=== PATIENT | female | born 1970 | race Caucasian/White ===

== ENCOUNTER 2018-08-03 22:45 | Inpatient (IN) | payer OTHER ==
[~2018-08-03] VITALS: Ht 160 cm; Wt 97.1 kg
[~2018-08-03 22:45] MED LIST: BACTRIM DS TAB1 EACH PO; NOHOMEMEDICATIONS; NORCO 5-325 TA1 EACH PO; ZOFRAN ODT4 MG PO
[2018-08-03 23:00] VITALS: BP 140/103
[2018-08-03 23:46] LABS: ABSOLUTE EOSINOPHILS 0.1 thou/uL (0.0-0.7); ABSOLUTE LYMPHOCYTES 1.2 thou/uL (0.8-5.3); ABSOLUTE MONOCYTES 0.8 thou/uL (0.0-1.2); ABSOLUTE NEUTROPHILS 2.9 thou/uL (1.6-8.1); BASOPHILS 0.9 %; EOSINOPHILS 1.8 %; HEMATOCRIT 38.2 % (37.0-47.0); HEMOGLOBIN 12.5 gm/dL (12.0-15.0); LYMPHOCYTES 24.4 %; MCH 25.9 pg (26.0-34.0); MCHC 32.8 g/dL (28.0-37.0); MCV 79.1 fL (80.0-100.0); MONOCYTES 15.5 %; NUCLEATED RBCS 0 /100WBC; PLATELET COUNT* 250 thou/uL (150-400); POLYS 57.4 %; RBC 4.82 mil/uL (4.20-5.00); RDW-CV 17.7 % (10.5-14.5)
[2018-08-03 23:50] LABS: ANION GAP 5 mmol/L (7-16); BUN 12 mg/dL (7-18); CALCIUM 8.3 mg/dL (8.5-10.1); CHLORIDE 107 mmol/L (98-107); CO2 30 mmol/L (21-32); CREATININE 0.7 mg/dL (0.6-1.3); GLUCOSE 98 mg/dL (70-99); POTASSIUM 4.4 mmol/L (3.5-5.1); SODIUM 142 mmol/L (136-145)
[2018-08-03 23:58] LABS: APTT 28.6 Seconds (25.0-31.3); PROTIME 9.9 Seconds (9.20-11.50)
[2018-08-03 23:59] LABS: ALBUMIN 2.9 g/dL (3.4-5.0); ALKALINE PHOSPHATASE 90 U/L (46-116); LIPASE 207 U/L (73-393); SGOT 23 U/L (15-37); SGPT 28 U/L (30-65); TOTAL BILIRUBIN 0.4 mg/dL (<0.1-1.0); TROPONIN-I LEVEL <0.06 ng/mL (<0.06)
[2018-08-04 00:19] LABS: AMP/METHAMP POSITIVE (Negative); BARBITURATES Negative (Negative); BENZODIAZEPINES Negative (Negative); COCAINE Negative (Negative); METHADONE Negative (Negative); OPIATES Negative (Negative); PCP Negative (Negative); THC Negative (Negative)
[2018-08-04 08:11] VITALS: BP 117/57
--- NOTE | 2018-08-04 09:06 | NUR ---
PT GIVEN BREAKFAST TRAY.
[2018-08-04 11:54] VITALS: BP 105/58
--- NOTE | 2018-08-04 13:30 | NUR ---
PT C/O SEVERE CP AND STATES SHE IS SWEATING DR. SHAHID PLACED WAITING ON RESPONSE
--- NOTE | 2018-08-04 13:31 | NUR ---
EKG DONE 1333 SR
[2018-08-04 15:52] VITALS: BP 100/57
[2018-08-04 16:22] VITALS: BP 129/78
--- NOTE | 2018-08-04 16:35 | NUR ---
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
--- NOTE | 2018-08-04 17:13 | EKG ---
[place] [address] ELECTROCARDIOGRAM REPORT Name: SERA PHILLIPS Room: [address] ADM IN M.R.#: [id number] Admission: 08/04/18 Attend Phys: Noelle Chavarria Discharge: Date of : 72 Report #: [id number] THIS REPORT FOR: //name// [facility] ED Test Date: 2018-08-03 Test Time: 22:56:38 Pat Name: SERA PHILLIPS Department: Room: 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 : 1970 Requested By: Paulette Lennon Order Number: [id number] MD: Les Isabel Measurements Intervals [place] Rate: 85 P: 56 UT: 150 QRS: 95 QRSD: 115 T: 82 QT: 377 QTc: 449 Interpretive Statements Sinus rhythm Low voltage, extremity and precordial leads Baseline wander in lead(s) I,III,aVR,aVL,V1,V2,V6 Compared to ECG 10/19/2015 23:27:29 Intraventricular conduction delay now present Low QRS voltage now present Electronically Signed On 08-04-2018 17:13:44 CDT by Les Isabel [email or web address] <ELECTRONICALLY SIGNED> By: Les Isabel MD, FACC 08/04/18 1713 2256 2256 Les Isabel MD, FACC /EPI
--- NOTE | 2018-08-04 17:22 | EKG ---
[place] [address] ELECTROCARDIOGRAM REPORT Name: HAWA PHILLIPSELLE Chalo Room: [address] ADM IN M.R.#: [id number] Admission: 08/04/18 Attend Phys: Noelle Chavarria Discharge: Date of : 72 Report #: [id number] THIS REPORT FOR: //name// [facility] ED Test Date: 2018-08-04 Test Time: 13:33:34 Pat Name: SERA PHILLIPS Department: Room: [facility] Gender: F Skin Carver: MS : 1970 Requested By: Ravinder Ivan Order Number: [id number] Summer MD: Les Isabel Measurements Intervals [place] Rate: 65 P: 53 UT: 169 QRS: 79 QRSD: 88 T: 74 QT: 402 QTc: 418 Interpretive Statements Sinus rhythm Baseline wander in lead(s) I,II,aVR,aVL,V1,V2,V3,V4,V5,V6 Compared to ECG 10/19/2015 23:27:29 No significant changes noted Electronically Signed On 08-04-2018 17:22:30 CDT by Les Isabel [email or web address] <ELECTRONICALLY SIGNED> By: Les Isabel MD, FACC 08/04/18 1722 1333 1333 Les Isabel MD, [facility] /EPI
[2018-08-04 20:00] VITALS: BP 140/65
[2018-08-05 00:30] VITALS: BP 114/68
[2018-08-05 04:00] VITALS: BP 102/66
--- NOTE | 2018-08-05 06:10 | NUR ---
ASSUMED PATIENT CARE AT 1900. PATIENT ALERT AND ORIENTED TIMES FOUR. MINOR COMPLAINTS OF A HEADACHE. IV MEDS GIVEN PATIENT DOES NOT HAVE ANY ORAL MEDICATION. VERBALIZES UNDERSTANDING OF CARE PLAN AND WHAT TO EXPECT WITH TREATMENT. DENIED THAT HEADACHE WAS WITHDRAWL RELATED. RN INTENSIVE CARE UNIT AND HOURLY ROUNDING COMPLETED DOCUMENTED.
[2018-08-05 08:00] VITALS: BP 112/69
--- NOTE | 2018-08-05 11:25 | NUR ---
cm completed initial assessment to discuss d/c planning. pt is a&ox4. active and independent. lives at home w/her fahter. has adult children that provides support. pt denies hx w/hh or snf. [address] [facility] will assist w/medication, as pt has no insurance and is medicaid pending. pt goal is to d/c to home. cm to remain avialable to assist as needed.
[2018-08-05 11:30] VITALS: BP 114/84
[2018-08-05 12:47] VITALS: BP 112/69
[2018-08-05] MEDS ORDERED: COUMADIN 5 MG TA5 M1 PO (13:37)
[2018-08-05] MEDS ORDERED: ENOXAPARIN80 MG/0.1 SUBQ (13:39)
--- NOTE | 2018-08-05 14:39 | 2DMMODE ---
[place] [address] 2 D/M-MODE ECHOCARDIOGRAM Name: SERA PHILLIPS Chalo Room: [address] ADM IN [facility]#: [id number] Admission: 08/04/18 Attend Phys: Ravinder Ivan Discharge: Date of : 72 Date of Service: 08/05/18 1439 Report #: [id number] THIS REPORT FOR: //name// APPROVED REPORT Study performed: 08/05/2018 10:27:04 EXAM: Comprehensive 2D, Doppler, and color-flow Echocardiogram Patient Location: In-Patient Room #: 221 Status: routine BSA: 1.99 HR: 74 bpm BP: 112/69 mmHg Rhythm: NSR Other Information Study Quality: Good Indications Dyspnea 2D Dimensions IVSd: 10.16 (7-11mm) LVOT Diam: 21.31 (18-24mm) LVDd: 42.94 mm PWd: 9.13 (7-11mm) Ascending Ao: 31.84 (22-36mm) LVDs: 28.54 (25-40mm) Aortic Root: 28.21 mm Volumes Left Atrial Volume (Systole) LA ESV Index: 16.60 mL/m2 Aortic Valve AoV Peak Valentin.: 1.17 m/s AO Peak Gr.: 5.45 mmHg LVOT Max P.51 mmHg AO Mean Gr.: 3.03 mmHg LVOT Mean P.65 mmHg LVOT Max V: 1.17 m/s AO V2 VTI: 24.12 cm LVOT Mean V: 0.75 m/s NELL (VTI): 3.48 cm2 LVOT V1 VTI: 23.52 cm Mitral Valve E/A Ratio: 1.55 MV Decel. Time: 211.34 ms MV E Max Valentin.: 0.79 m/[place] [address] 2 D/M-MODE ECHOCARDIOGRAM Name: SERA PHILLIPS Room: [address] IN ..#: [id number] Admission: 08/04/18 Attend Phys: Ravinder Ivan Discharge: Date of : 72 Date of Service: 08/05/18 1439 Report #: [id number] MV PHT: 61.29 ms MVA (PHT): 3.59 cm2 TDI E/Lateral E': 4.65 E/Medial E': 6.58 Medial E' Valentin.: 0.12 m/s Lateral E' Valentin.: 0.17 m/s Pulmonary Valve PV Peak Valentin.: 0.89 m/s PV Peak Gr.: 3.14 mmHg Tricuspid Valve RAP Estimate: 5.00 mmHg TR Peak Gr.: 23.43 mmHg RVSP: 28.00 mmHg PA Pressure: 28.00 mmHg Left Ventricle The left ventricle is normal size. There is normal LV segmental wall motion. There is normal left ventricular wall thickness. Left ventricular systolic function is normal. LVEF is 55-60%. The left ventricular diastolic function is normal. Right Ventricle The right ventricle is normal size. The right ventricular systolic function is normal. Atria The left atrium size is normal. The right atrium size is normal. Aortic Valve The aortic valve is normal in structure. No aortic regurgitation is present. There is no aortic valvular stenosis. Mitral Valve The mitral valve is normal in structure. Trace mitral regurgitation. No evidence of mitral valve stenosis. Tricuspid Valve The tricuspid valve is normal in structure. Trace tricuspid regurgitation. No pulmonary hypertension. Pulmonic Valve The pulmonary valve is normal in structure. There is no pulmonic [place] [address] 2 D/M-MODE ECHOCARDIOGRAM Name: SERA PHILLIPS Room: [address]#: [id number] Admission: 08/04/18 Attend Phys: Ravinder Ivan Discharge: Date of : 72 Date of Service: 08/05/18 1439 Report #: [id number] Great Vessels The aortic root is normal in size. IVC is normal in size and collapses >50% with inspiration. Pericardium There is no pericardial effusion. <Conclusion> The left ventricle is normal size. There is normal left ventricular wall thickness. Left ventricular systolic function is normal. LVEF is 55-60%. The left ventricular diastolic function is normal. Trace mitral regurgitation. Trace tricuspid regurgitation. No pulmonary hypertension. IVC is normal in size and collapses >50% with inspiration. <ELECTRONICALLY SIGNED> By: Les Isabel MD, FACC 08/05/18 1439 1439 1439 Les Isabel MD, FACC /INF
--- NOTE | 2018-08-05 15:24 | NUR ---
VSS, ASSUMED CARE IN THE AM, ASSESSMENT PERFORMED AND CHARTED FALL PRECAUTIONS IN PLACE AND CALL LIGHT IN REACH, PT DENIES ANY COMPLANTS OF PAIN AND IS TRACING SR ON THE MONITOR, HER GOAL IS TO DISCHARGE TO HOME, AT THIS TIME SHE HAS BEEN BEEN GIVEN DISCHARGE ORDERS, AND HER IV AND TELE MONITOR TAKEN OFF, SHE HAD SCRIPTS CALLED IN AND DISCHARGE PAPERS PROVITED, PT DENIES ANY QUESTIONS AT TIME OF D/C SHE HAD GATHERED ALL BELONGINGS AND PLACED WITH AT TIME OF D/C HOURLY ROUNDS COMPLETED.
[2018-08-05 15:27] LABS: PROTIME 9.8 Seconds (9.20-11.50)
== END 2018-08-05 18:56 | disposition home or self-care (01) | DRG 176 ==
LOC: M.ERS 22:45 → M.2W 08-04 02:50 → M.TBA-ER 08-04 02:50 → M.2W 08-04 15:59
PROVIDERS: Internal Medicine; Personal Emergency Response Attendant; ADMIT Internal Medicine
DX: I26.99 Other pulmonary embolism without acute cor pulmonale (principal); J45.909 Unspecified asthma, uncomplicated; F17.210 Nicotine dependence, cigarettes, uncomplicated; F12.90 Cannabis use, unspecified, uncomplicated; K29.70 Gastritis, unspecified, without bleeding; Z82.49 Family history of ischemic heart disease and other diseases of the circulatory system; Z79.899 Other long term (current) drug therapy

== ENCOUNTER 2018-08-10 03:46 | Emergency (ER) | payer OTHER ==
[~2018-08-10] VITALS: Ht 157.5 cm; Wt 81.6 kg
[~2018-08-10 03:46] MED LIST changes: +COUMADIN 5 MG TA5 M1 PO; +ENOXAPARIN80 MG/0.1 SUBQ
[2018-08-10 04:08] LABS: ABSOLUTE BASOPHILS 0.1 thou/uL (0.0-0.2); ABSOLUTE EOSINOPHILS 0.5 thou/uL (0.0-0.7); ABSOLUTE LYMPHOCYTES 3.3 thou/uL (0.8-5.3); ABSOLUTE MONOCYTES 0.8 thou/uL (0.0-1.2); ABSOLUTE NEUTROPHILS 6.4 thou/uL (1.6-8.1); BASOPHILS 0.8 %; EOSINOPHILS 4.5 %; HEMATOCRIT 38.2 % (37.0-47.0); HEMOGLOBIN 12.3 gm/dL (12.0-15.0); LYMPHOCYTES 29.9 %; MCH 25.2 pg (26.0-34.0); MCHC 32.1 g/dL (28.0-37.0); MCV 78.6 fL (80.0-100.0); MONOCYTES 6.9 %; MPV 7.2 fl. (7.2-11.1); NUCLEATED RBCS 0 /100WBC; PLATELET COUNT* 415 thou/uL (150-400); POLYS 57.9 %; RBC 4.86 mil/uL (4.20-5.00); RDW-CV 17.5 % (10.5-14.5); WBC 11.1 thou/uL (4.0-11.0)
[2018-08-10 04:17] LABS: CALCIUM 8.8 mg/dL (8.5-10.1); CREATININE 0.5 mg/dL (0.6-1.3)
[2018-08-10 04:21] LABS: INR 1.2; PROTIME 11.9 Seconds (9.20-11.50)
[2018-08-10 04:23] LABS: URINE BILIRUBIN NEGATIVE (Negative); URINE BLOOD NEGATIVE (Negative); URINE CLARITY CLEAR; URINE COLOR YELLOW; URINE GLUCOSE-RANDOM NEGATIVE (Negative); URINE KETONES NEGATIVE (Negative); URINE LEUKOCYTES-REFLEX NEGATIVE (Negative); URINE NITRITE-REFLEX NEGATIVE (Negative); URINE PROTEIN NEGATIVE (Negative); URINE SPECIFIC GRAVITY 1.025 (1.005-1.030); URINE UROBILINOGEN 0.2 E.U./dl (0.2-1.0)
[2018-08-10 04:27] LABS: ALBUMIN 2.9 g/dL (3.4-5.0); TOTAL BILIRUBIN 0.3 mg/dL (<0.1-1.0); TOTAL PROTEIN 6.8 g/dL (6.4-8.2)
[2018-08-10 05:13] LABS: AMP/METHAMP Negative (Negative); BARBITURATES Negative (Negative); BENZODIAZEPINES Negative (Negative); COCAINE Negative (Negative); METHADONE Negative (Negative); OPIATES Negative (Negative); PCP Negative (Negative); THC Negative (Negative)
[2018-08-10] MEDS ORDERED: FLEXERIL PO (06:38)
[2018-08-10 08:31] VITALS: BP 91/56
--- NOTE | 2018-08-10 11:04 | EKG ---
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
== END 2018-08-10 08:36 | disposition home or self-care (01) ==
LOC: M.ERS 03:46
PROVIDERS: Emergency Medicine
DX: R07.89 Other chest pain (principal); F17.210 Nicotine dependence, cigarettes, uncomplicated; J45.909 Unspecified asthma, uncomplicated

== ENCOUNTER 2018-12-16 20:45 | Emergency (ER) | payer OTHER ==
[~2018-12-16] VITALS: Ht 160 cm; Wt 101.2 kg
[~2018-12-16 20:45] MED LIST changes: +FLEXERIL PO; +IRON325 PO; +NORCO 5-325 TA1 EAC1 PO; +PEPCID40 MG PO; +PREDNISONE 10 M10 M1 PO; +VISTARIL 25 MG25 M1 PO; +XARELTO20 MG PO
[2018-12-16 21:31] LABS: ABSOLUTE BASOPHILS 0.1 thou/uL (0.0-0.2); ABSOLUTE EOSINOPHILS 0.6 thou/uL (0.0-0.7); ABSOLUTE LYMPHOCYTES 1.7 thou/uL (0.8-5.3); ABSOLUTE MONOCYTES 0.6 thou/uL (0.0-1.2); ABSOLUTE NEUTROPHILS 5.8 thou/uL (1.6-8.1); BASOPHILS 0.9 %; HEMATOCRIT 39.8 % (37.0-47.0); HEMOGLOBIN 13.1 gm/dL (12.0-15.0); LYMPHOCYTES 19.4 %; MCH 27.5 pg (26.0-34.0); MCHC 32.9 g/dL (28.0-37.0); MCV 83.5 fL (80.0-100.0); MONOCYTES 7.1 %; MPV 7.5 fl. (7.2-11.1); NUCLEATED RBCS 0 /100WBC; PLATELET COUNT* 308 thou/uL (150-400); POLYS 65.6 %; RBC 4.76 mil/uL (4.20-5.00); RDW-CV 19.3 % (10.5-14.5); WBC 8.9 thou/uL (4.0-11.0)
[2018-12-16 21:40] LABS: CALCIUM 9.2 mg/dL (8.5-10.1); CREATININE 0.8 mg/dL (0.6-1.3)
[2018-12-16 21:44] LABS: ALBUMIN 3.6 g/dL (3.4-5.0); TOTAL BILIRUBIN 0.3 mg/dL (<0.1-1.0); TOTAL PROTEIN 7.4 g/dL (6.4-8.2)
[2018-12-16] MEDS ORDERED: PROMS25 WY RECTAL (22:39)
[2018-12-16] MEDS ORDERED: ULTRAM 50MG TAB50 MG PO (22:39)
[2018-12-16] MEDS ORDERED: PHENERGAN 25 MG25 M1 PO (22:39)
[2018-12-16] MEDS ORDERED: CARAFATE 1 GM TA1 GM PO (23:10)
[2018-12-16 23:40] VITALS: BP 100/50
--- NOTE | 2018-12-19 16:18 | EKG ---
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
== END 2018-12-16 23:44 | disposition home or self-care (01) ==
LOC: M.ERS 20:45
PROVIDERS: Personal Emergency Response Attendant
DX: K80.50 Calculus of bile duct without cholangitis or cholecystitis without obstruction (principal); R11.2 Nausea with vomiting, unspecified; F17.210 Nicotine dependence, cigarettes, uncomplicated; Z88.8 Allergy status to other drugs, medicaments and biological substances; Z87.442 Personal history of urinary calculi; Z98.51 Tubal ligation status

== ENCOUNTER 2019-01-02 12:44 | Emergency (ER) | payer OTHER ==
[~2019-01-02] VITALS: Ht 160 cm; Wt 104.3 kg
[~2019-01-02 12:44] MED LIST changes: +CARAFATE 1 GM TA1 GM PO; +PHENERGAN 25 MG25 M1 PO; +PROMS25 WY RECTAL; +ULTRAM 50MG TAB50 MG PO
[2019-01-02] MEDS ORDERED: RAYOS5 MG PO (12:54)
[2019-01-02] MEDS ORDERED: AZITHROMYCIN500 MG PO (12:55)
[2019-01-02 13:17] LABS: HEMATOCRIT 39.1 % (37.0-47.0); HEMOGLOBIN 12.6 gm/dL (12.0-15.0); MCH 27.2 pg (26.0-34.0); MCHC 32.2 g/dL (28.0-37.0); MCV 84.5 fL (80.0-100.0); MPV 7.4 fl. (7.2-11.1); NUCLEATED RBCS 0 /100WBC; PLATELET COUNT* 388 thou/uL (150-400); RBC 4.63 mil/uL (4.20-5.00); RDW-CV 18.9 % (10.5-14.5); WBC 13.1 thou/uL (4.0-11.0)
[2019-01-02 13:31] LABS: ALBUMIN 3.4 g/dL (3.4-5.0); CREATININE 0.7 mg/dL (0.6-1.3); POTASSIUM 4.7 mmol/L (3.5-5.1); TOTAL BILIRUBIN 0.2 mg/dL (<0.1-1.0); TOTAL PROTEIN 7.3 g/dL (6.4-8.2)
[2019-01-02 13:44] LABS: ABSOLUTE LYMPHOCYTES 1.2 thou/uL (0.8-5.3); ABSOLUTE MONOCYTES 0.7 thou/uL (0.0-1.2); ABSOLUTE NEUTROPHILS 11.3 thou/uL (1.6-8.1)
[2019-01-02 13:46] LABS: ANISOCYTOSIS 1+; HYPOCHROMASIA Occasional; PLATELET ESTIMATE ADEQUATE; TOXIC GRANULATION Occasional
[2019-01-02] MEDS ORDERED: ALBUTEROL2.5 MG/31 INH (14:46)
[2019-01-02] MEDS ORDERED: PREDNISONE 20 M20 M1 PO (14:46)
[2019-01-02] MEDS ORDERED: NEBULIZER MISCELL (14:46)
[2019-01-02 14:59] VITALS: BP 150/92
--- NOTE | 2019-01-03 11:01 | EKG ---
[place] [address] ELECTROCARDIOGRAM REPORT Name: SER[facility] PHILLIPS [id number] Admission: 01/02/19 Attend Phys: Discharge: 01/02/19 Date of : 72 Report #: [id number] THIS REPORT FOR: //name// [facility] ED Test Date: 2019-01-02 Test Time: 12:48:01 Pat Name: SERA PHILLIPS Department: Room: Gender: F Tray Server: SUNITHA : 1970 Requested By: Javier Mendez Order Number: [id number] Summer MD: Les Isabel Measurements Intervals [place] Rate: 64 P: 48 WI: 168 QRS: 82 QRSD: 99 T: 73 QT: 385 QTc: 398 Interpretive Statements Sinus rhythm Baseline wander in lead(s) V2 Compared to ECG 12/16/2018 20:51:32 no significant changes noted Electronically Signed On 01-03-2019 11:00:50 ANIMAL NURSE by Les Isabel [email or web address] <ELECTRONICALLY SIGNED> By: Les Isabel MD, [facility] 01/03/19 1100 1248 1248 Les Isabel MD, FACC /EPI
== END 2019-01-02 14:59 | disposition home or self-care (01) ==
LOC: M.ERS 12:44
PROVIDERS: Emergency Medicine
DX: J20.9 Acute bronchitis, unspecified (principal); F17.210 Nicotine dependence, cigarettes, uncomplicated; Z87.442 Personal history of urinary calculi; Z98.51 Tubal ligation status; Z88.8 Allergy status to other drugs, medicaments and biological substances

== ENCOUNTER 2019-02-22 00:53 | Emergency (ER) | payer OTHER ==
[~2019-02-22] VITALS: Ht 160 cm; Wt 109.8 kg
[~2019-02-22 00:53] MED LIST changes: +ALBUTEROL2.5 MG/31 INH; +AZITHROMYCIN500 MG PO; +NEBULIZER MISCELL; +PREDNISONE 20 M20 M1 PO; +RAYOS5 MG PO
[2019-02-22 01:09] VITALS: BP 102/63
== END 2019-02-22 01:11 | disposition left against medical advice (07) ==
LOC: M.ERS 00:53
DX: R10.84 Generalized abdominal pain (principal); J44.9 Chronic obstructive pulmonary disease, unspecified; F17.210 Nicotine dependence, cigarettes, uncomplicated; Z88.8 Allergy status to other drugs, medicaments and biological substances; Z98.51 Tubal ligation status; Z87.442 Personal history of urinary calculi

== ENCOUNTER 2019-11-25 22:17 | Emergency (ER) | payer OTHER ==
[~2019-11-25] VITALS: Ht 160 cm; Wt 108.9 kg
[2019-11-26 00:26] VITALS: BP 154/79
== END 2019-11-26 00:26 | disposition home or self-care (01) ==
LOC: M.ERS 22:17
DX: M79.662 Pain in left lower leg (principal); J44.9 Chronic obstructive pulmonary disease, unspecified; F17.210 Nicotine dependence, cigarettes, uncomplicated; Z98.51 Tubal ligation status; Z87.442 Personal history of urinary calculi

== ENCOUNTER 2020-03-17 10:04 | Inpatient (IN) | payer OTHER ==
[~2020-03-17] VITALS: Ht 160 cm; Wt 108.9 kg
--- NOTE | ~2020-03-17 | OP ---
[facility] [address] [place] [address] OPERATIVE REPORT Name: SERA PHILLIPS Room: [address] Nicholas Francisco#: [id number] Admission: 03/17/20 Attend Phys: José Miguel Rodrigez Discharge: Date of : 72 Report #: [id number] THIS REPORT FOR: cc: FAM - No family physician/PCP FAM - No family physician/PCP ~ José Miguel Rodrigez MD DATE OF SERVICE: 03/17/2020 PREOPERATIVE DIAGNOSIS: Incarcerated ventral incisional hernia. POSTOPERATIVE DIAGNOSIS: Incarcerated ventral incisional hernia. OPERATION: Laparoscopic repair of incarcerated ventral incisional hernia with mesh. SURGEON: José Miguel Rodrigez MD ANESTHESIA: General. ESTIMATED BLOOD LOSS: Minimal. SPECIMEN: None. DESCRIPTION OF PROCEDURE: After informed consent was obtained, the patient was brought to the operating room and placed supine. SCDs were placed and working, preoperative antibiotics were administered, general anesthesia was induced. The abdomen was prepped and draped in usual sterile fashion. A 5 mm incision was made in the left upper quadrant. A 5 mm trocar was placed under direct vision. An 8 mm and another 5 mm trocar were placed on the left side under direct vision and a right-sided 5 mm trocar was placed. She had incarcerated small bowel and an umbilical hernia defect. The small bowel was grasped and retracted posteriorly. I then transected the hernia sac, taking great care not to injure the small bowel. I fully examined the small bowel to make sure that there was no injury to the bowel. I took pictures to document this. The defect measured approximately 1.5 cm. I then inserted an 11 cm Bard Ventralight mesh. It was tacked up to the abdominal wall with 35 absorbable tacks to cover the defect widely. There was good coverage of the mesh. A transfascial 2-0 Ethibond suture was placed in the superior aspect of the mesh using a PMI suture passer. The ports were removed under direct vision. The skin was closed with 4-0 Monocryl. Incisions were dressed with Steri-Strips. COMPLICATIONS: [place] [address] OPERATIVE REPORT Name: SERA PHILLIPS Room: [address] Christa.#: [id number] Admission: 03/17/20 Attend Phys: José Miguel Rodrigez Discharge: Date of : 72 Report #: [id number] DISPOSITION: The patient was taken to recovery in satisfactory condition. By: 1617 1724José Miguel Rodrigez MD /oswaldo
[2020-03-17 10:15] VITALS: BP 120/86
[2020-03-17] MEDS ORDERED: PROAIR HFA8.5 GM INH (10:20)
[2020-03-17] MEDS ORDERED: ALBUTEROL2.5 MG/0.5 INH (10:21)
[2020-03-17 10:33] LABS: URINE BLOOD NEGATIVE (Negative); URINE CLARITY CLEAR; URINE COLOR YELLOW; URINE GLUCOSE-RANDOM NEGATIVE (Negative); URINE KETONES 1+ (Negative); URINE LEUKOCYTES-REFLEX NEGATIVE (Negative); URINE NITRITE-REFLEX NEGATIVE (Negative); URINE PROTEIN NEGATIVE (Negative); URINE SPECIFIC GRAVITY >= 1.030 (1.005-1.030); URINE UROBILINOGEN 0.2 E.U./dl (0.2-1.0)
[2020-03-17 10:37] LABS: ICTOTEST (BILI CONFIRMATORY) Negative (Negative); URINE BILIRUBIN 1+ (Negative)
[2020-03-17 10:54] LABS: ABSOLUTE BASOPHILS 0.1 thou/uL (0.0-0.2); ABSOLUTE EOSINOPHILS 0.4 thou/uL (0.0-0.7); ABSOLUTE LYMPHOCYTES 1.4 thou/uL (0.8-5.3); ABSOLUTE MONOCYTES 0.9 thou/uL (0.0-1.2); ABSOLUTE NEUTROPHILS 10.8 thou/uL (1.6-8.1); BASOPHILS 0.5 %; EOSINOPHILS 2.6 %; HEMATOCRIT 40.9 % (37.0-47.0); HEMOGLOBIN 13.1 gm/dL (12.0-15.0); LYMPHOCYTES 10.3 %; MCH 24.9 pg (26.0-34.0); MCHC 31.9 g/dL (28.0-37.0); MCV 78.1 fL (80.0-100.0); MONOCYTES 6.3 %; MPV 7.2 fl. (7.2-11.1); NUCLEATED RBCS 0 /100WBC; PLATELET COUNT* 372 thou/uL (150-400); POLYS 80.3 %; RBC 5.24 mil/uL (4.20-5.00); RDW-CV 16.8 % (10.5-14.5); WBC 13.4 thou/uL (4.0-11.0)
[2020-03-17 11:08] LABS: ALBUMIN 3.1 g/dL (3.4-5.0); CALCIUM 8.6 mg/dL (8.5-10.1); CREATININE 0.7 mg/dL (0.6-1.3); POTASSIUM 4.1 mmol/L (3.5-5.1); TOTAL BILIRUBIN 1.2 mg/dL (<0.1-1.0); TOTAL PROTEIN 6.7 g/dL (6.4-8.2)
[2020-03-17] MEDS ORDERED: HYDROCODON-ACE1 EAC7 PO (12:36)
[2020-03-17] MEDS ORDERED: ZOFRAN ODT4 MG SUBLING (12:36)
[2020-03-17] MEDS ORDERED: CIPROFLOXACIN500 M1 PO (12:36)
[2020-03-17 14:30] VITALS: BP 116/68
[2020-03-17 17:45] VITALS: BP 120/47
[2020-03-17 19:40] VITALS: BP 103/59
[2020-03-18 04:48] VITALS: BP 116/70
[2020-03-18 08:50] VITALS: BP 113/74
[2020-03-18 12:12] VITALS: BP 108/64
--- NOTE | 2020-03-18 15:06 | EKG ---
[place] [address] ELECTROCARDIOGRAM REPORT Name: SERA PHILLIPS Room: [address] M.R.#: [id number] Admission: 03/17/20 Attend Phys: José Miguel Medrano Discharge: Date of : 72 Date of Service: 03/17/20 1039 Report #: [id number] THIS REPORT FOR: //name// 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: : 1970 Requested By: Kervin Lozano Order Number: [id number] MD: Les Isabel Measurements Intervals [place] Rate: 91 P: 79 [place]: 152 QRS: 71 QRSD: 82 T: 67 QT: 338 QTc: 416 Interpretive Statements Sinus rhythm Abnormal R-wave progression, early transition Baseline wander in lead(s) II,III,aVR,aVL,aVF,V1,V2,V3,V4,V5,V6 Compared to ECG 01/02/2019 12:48:01 No significant changes Electronically Signed On 03-18-2020 15:06:42 ELECTRONICS TECH by Les Isabel [email or web address] <ELECTRONICALLY SIGNED> By: Les Isabel MD, FACC 03/18/20 1506 1039 1039 Les Isabel MD, [facility] /EPI
[2020-03-18 16:06] VITALS: BP 97/66
[2020-03-18 20:30] VITALS: BP 103/67
[2020-03-19 08:13] VITALS: BP 126/85
[2020-03-19 12:00] VITALS: BP 135/72
[2020-03-19 15:36] LABS: CALCIUM 9.2 mg/dL (8.5-10.1); CREATININE 0.6 mg/dL (0.6-1.3)
[2020-03-19 15:39] LABS: POTASSIUM 4.8 mmol/L (3.5-5.1)
[2020-03-19 16:00] VITALS: BP 132/75
[2020-03-19 16:13] LABS: HEMATOCRIT 40.5 % (37.0-47.0); HEMOGLOBIN 12.8 gm/dL (12.0-15.0); MCH 25.1 pg (26.0-34.0); MCHC 31.6 g/dL (28.0-37.0); MCV 79.3 fL (80.0-100.0); MPV 7.3 fl. (7.2-11.1); NUCLEATED RBCS 0 /100WBC; PLATELET COUNT* 299 thou/uL (150-400); RDW-CV 16.6 % (10.5-14.5); WBC 13.8 thou/uL (4.0-11.0)
[2020-03-19 16:51] LABS: ABSOLUTE EOSINOPHILS 0.1 thou/uL (0.0-0.7); ABSOLUTE LYMPHOCYTES 0.4 thou/uL (0.8-5.3); ABSOLUTE MONOCYTES 0.3 thou/uL (0.0-1.2)
[2020-03-19 16:52] LABS: ANISOCYTOSIS Occasional; PLATELET ESTIMATE ADEQUATE
[2020-03-19 20:00] VITALS: BP 116/77
[2020-03-20 07:50] VITALS: BP 123/77
[2020-03-20 16:16] VITALS: BP 127/80
[2020-03-20 20:00] VITALS: BP 107/87
[2020-03-21 08:20] VITALS: BP 129/84
[2020-03-21 14:35] LABS: CALCIUM 9.6 mg/dL (8.5-10.1); CREATININE 0.7 mg/dL (0.6-1.3); POTASSIUM 4.4 mmol/L (3.5-5.1)
[2020-03-21 15:44] VITALS: BP 112/84
[2020-03-21 20:00] VITALS: BP 152/94
[2020-03-22 05:09] LABS: CALCIUM 8.6 mg/dL (8.5-10.1); CREATININE 0.8 mg/dL (0.6-1.3); POTASSIUM 3.5 mmol/L (3.5-5.1)
[2020-03-22 05:15] LABS: HEMATOCRIT 37.2 % (37.0-47.0); HEMOGLOBIN 12.1 gm/dL (12.0-15.0); MCH 25.7 pg (26.0-34.0); MCHC 32.5 g/dL (28.0-37.0); MPV 7.3 fl. (7.2-11.1); RBC 4.71 mil/uL (4.20-5.00); WBC 10.1 thou/uL (4.0-11.0)
[2020-03-22 08:25] VITALS: BP 116/78
[2020-03-22 16:10] VITALS: BP 119/72
[2020-03-22 21:45] VITALS: BP 133/77
[2020-03-23 00:03] VITALS: BP 118/78
[2020-03-23 08:20] VITALS: BP 124/70
[2020-03-23 16:06] VITALS: BP 116/76
[2020-03-23 20:16] VITALS: BP 103/73
[2020-03-24 05:15] VITALS: BP 122/78
[2020-03-24 07:25] VITALS: BP 120/78
[2020-03-24 16:18] VITALS: BP 105/68
[2020-03-24 19:32] VITALS: BP 115/77
[2020-03-24 23:33] VITALS: BP 98/66
[2020-03-25 04:23] VITALS: BP 117/78
[2020-03-25 07:11] LABS: HEMATOCRIT 36.6 % (37.0-47.0); HEMOGLOBIN 11.6 gm/dL (12.0-15.0); MCH 25.1 pg (26.0-34.0); MCHC 31.8 g/dL (28.0-37.0); MCV 78.8 fL (80.0-100.0); MPV 6.8 fl. (7.2-11.1); RBC 4.64 mil/uL (4.20-5.00); RDW-CV 16.2 % (10.5-14.5); WBC 10.3 thou/uL (4.0-11.0)
[2020-03-25 07:24] LABS: CALCIUM 8.4 mg/dL (8.5-10.1); CREATININE 0.7 mg/dL (0.6-1.3)
[2020-03-25 07:31] LABS: POTASSIUM 2.9 mmol/L (3.5-5.1)
[2020-03-25 08:02] VITALS: BP 118/68
[2020-03-25 15:46] VITALS: BP 99/67
[2020-03-25 17:57] VITALS: BP 99/67
[2020-03-25 20:00] VITALS: BP 127/76
[2020-03-26 08:00] VITALS: BP 112/76
[2020-03-26 09:19] VITALS: BP 99/67
[2020-03-26 09:21] VITALS: BP 99/67
[2020-03-26 10:46] VITALS: BP 99/67
[2020-03-26 11:29] VITALS: BP 99/67
== END 2020-03-26 11:20 | disposition home or self-care (01) | DRG 354 ==
LOC: M.ERS 10:04 → M.SUR 10:04 → M.ERS 14:31 → M.2W 16:00 → M.3W 03-18 07:38
PROVIDERS: Family Medicine; ADMIT Surgery; ATTEND Surgery
PROC: 0WUF4JZ Supplement Abdominal Wall with Synthetic Substitute, Percutaneous Endoscopic Approach (ICD-10-PCS; principal; 2020-03-19)
DX: K43.6 Other and unspecified ventral hernia with obstruction, without gangrene (principal); K56.7 Ileus, unspecified; M96.842 Postprocedural seroma of a musculoskeletal structure following a musculoskeletal system procedure; K42.0 Umbilical hernia with obstruction, without gangrene; J44.9 Chronic obstructive pulmonary disease, unspecified; Y82.8 Other medical devices associated with adverse incidents; Y83.8 Other surgical procedures as the cause of abnormal reaction of the patient, or of later complication, without mention of misadventure at the time of the procedure; F17.200 Nicotine dependence, unspecified, uncomplicated; Z88.8 Allergy status to other drugs, medicaments and biological substances; Z79.899 Other long term (current) drug therapy; Y92.89 Other specified places as the place of occurrence of the external cause

== ENCOUNTER 2020-06-26 02:29 | Emergency (ER) | payer OTHER ==
[~2020-06-26] VITALS: Ht 160 cm; Wt 117.9 kg
[~2020-06-26 02:29] MED LIST changes: +ALBUTEROL2.5 MG/0.5 INH; +CIPROFLOXACIN500 M1 PO; +HYDROCODON-ACE1 EAC7 PO; +PROAIR HFA8.5 GM INH; +ZOFRAN ODT4 MG SUBLING
[2020-06-26] MEDS ORDERED: HYDROCODON-ACE1 EAC7 PO (02:38)
[2020-06-26] MEDS ORDERED: PERIDEX15 ML SWISH&SPIT (03:30)
[2020-06-26] MEDS ORDERED: PENICILLIN V P500 MG PO (03:30)
[2020-06-26 03:34] VITALS: BP 144/87
== END 2020-06-26 03:34 | disposition home or self-care (01) ==
LOC: M.ERS 02:29
DX: K04.7 Periapical abscess without sinus (principal); K02.9 Dental caries, unspecified; R22.0 Localized swelling, mass and lump, head; J44.9 Chronic obstructive pulmonary disease, unspecified; F17.210 Nicotine dependence, cigarettes, uncomplicated; Z87.442 Personal history of urinary calculi; Z88.5 Allergy status to narcotic agent; Z88.8 Allergy status to other drugs, medicaments and biological substances

== ENCOUNTER 2020-09-03 10:36 | Emergency (ER) | payer OTHER ==
[~2020-09-03] VITALS: Ht 160 cm; Wt 122.5 kg
[~2020-09-03 10:36] MED LIST changes: +PENICILLIN V P500 MG PO; +PERIDEX15 ML SWISH&SPIT
[2020-09-03] MEDS ORDERED: NICORETTE2 M1 BUCCAL (10:46)
[2020-09-03] MEDS ORDERED: MOBIC7.5 MG PO (13:30)
[2020-09-03] MEDS ORDERED: MEDROLDOSEPACK PO (13:30)
[2020-09-03] MEDS ORDERED: HYDROCODON-ACE1 EAC7 PO (13:33)
[2020-09-03 14:05] VITALS: BP 132/78
== END 2020-09-03 14:06 | disposition home or self-care (01) ==
LOC: M.ERS 10:36
DX: M25.512 Pain in left shoulder (principal); J44.9 Chronic obstructive pulmonary disease, unspecified; F17.210 Nicotine dependence, cigarettes, uncomplicated; Z88.5 Allergy status to narcotic agent; Z88.8 Allergy status to other drugs, medicaments and biological substances